=== PATIENT | female | born 1950 | race Two or more races ===

== ENCOUNTER 2016-09-15 20:18 | Inpatient (IN) | payer MEDICARE, OTHER ==
[~2016-09-15] VITALS: Ht 157.5 cm; Wt 57.2 kg
[~2016-09-15 20:18] MED LIST: ACETAMINOPHEN 1,000 MG/100 ML IV ONE; BACITRACIN 50,000 UNITS INJ IRRIG ONE; DEXAMETHASONE 4 MG/ML VIAL IV ONE; FENTANYL 100 MCG/2 ML AMP IV ONE; LIDOCAINE 2% SYR 5 ML IV ONE; ONDANSETRON 4 MG VIAL IV PUSH ONE; PROPOFOL 20 ML PER ML IV ONE; ROCURONIUM 50 MG VIAL IV ONE; SUGAMMADEX 200 MG/2 ML VIAL IV ONE
[2016-09-15] MEDS ORDERED: ONDANSETRON 4 MG VIAL ONE ×2 (21:12→23:58)
[2016-09-15] MEDS ORDERED: MORPHINE 4 MG/ML SYR ONE (21:13)
[2016-09-15] MEDS ORDERED: ACETAMINOPHEN 325 MG TAB PO PRN (21:45)
[2016-09-15] MEDS ORDERED: ALU/MAG/SIM 30 ML UDC PO PRN (21:45)
[2016-09-15] MEDS ORDERED: MAG HYDROX 30 ML UDC PO PRN (21:45)
[2016-09-15] MEDS ORDERED: SALINE FLUSH 10 ML FLUSH PRN (21:45)
[2016-09-15] MEDS ORDERED: BISACODYL EC 5 MG TAB PO PRN (21:45)
[2016-09-15] MEDS ORDERED: DILAUDID 1 MG/ML AMP IV PRN (21:45)
[2016-09-15] MEDS ORDERED: BISACODYL 10 MG SUPP RECTAL PRN (21:45)
[2016-09-15] MEDS ORDERED: SODIUM CHLORIDE 0.9% 1,000 ML IV SCH (21:45)
[2016-09-15 23:13] VITALS: BP_SYST 132; TEMP 97.5; Ht 157.5 cm; Wt 57.2 kg
[2016-09-15 23:14] VITALS: RESP 20
[2016-09-15] MEDS ORDERED: ONDANSETRON 4 MG VIAL IV PUSH PRN (23:50)
[2016-09-16] VITALS (17 sets, daily range): BP systolic 89–128; RESP 14–20; TEMP 97.3–99.4
[2016-09-16] MEDS: MORPHINE 2 MG/ML SYR IV PRN ×2 (00:39→06:47)
[2016-09-16] MEDS ORDERED: SODIUM CHLORIDE 0.9% FLUSH BAG 500 ML IV SCH (06:00)
[2016-09-16] MEDS ORDERED: CEFAZOLIN 2,000 MG in SODIUM CHLORIDE 0.9% 100 ML IV ONE (07:10)
[2016-09-16] MEDS ORDERED: FAMOTIDINE 20 MG INJ IV SCH ×2 (08:00→20:00)
[2016-09-16] MEDS ORDERED: SALINE FLUSH 10 ML FLUSH SCH (08:00)
[2016-09-16] MEDS ORDERED: FAMOTIDINE 20 MG INJ IV ONE (09:15)
[2016-09-16] MEDS ORDERED: MIDAZOLAM 2 MG/2 ML INJ IV ONE (09:15)
[2016-09-16] MEDS ORDERED: LACT RINGERS 1,000 ML IV SCH (09:15)
[2016-09-16] MEDS ORDERED: METOCLOPRAMIDE 10 MG/2 ML VIAL IV PUSH ONE (09:15)
[2016-09-16] MEDS ORDERED: DILAUDID 1 MG/ML AMP IV PRN ×2 (10:00→10:45)
[2016-09-16] MEDS ORDERED: ONDANSETRON 4 MG VIAL IV PRN ×2 (10:00→10:45)
[2016-09-16] MEDS ORDERED: MORPHINE 2 MG/ML SYR IV PRN ×3 (10:00→10:45)
[2016-09-16] MEDS ORDERED: MORPHINE 4 MG/ML SYR IV PRN ×3 (10:00→10:45)
[2016-09-16] MEDS ORDERED: OXYCODONE 5 MG TAB PO PRN (10:00)
[2016-09-16] MEDS ORDERED: SALINE FLUSH 10 ML FLUSH PRN (10:25)
[2016-09-16] MEDS ORDERED: ONDANSETRON 4 MG TAB PO PRN (10:25)
[2016-09-16] MEDS ORDERED: ZOLPIDEM 5 MG TAB PO PRN (10:25)
[2016-09-16] MEDS ORDERED: MAG HYDROX 30 ML UDC PO PRN (10:25)
[2016-09-16] MEDS: CEFAZOLIN 2,000 MG in SODIUM CHLORIDE 0.9% 100 ML IV SCH ×2 (14:15→21:25)
[2016-09-16] MEDS: D5-1/2-NS W/KCL 20MEQ/L 1,000 ML IV SCH (14:20)
[2016-09-16] MEDS: ONDANSETRON 4 MG VIAL IV PRN ×2 (15:05→16:52)
[2016-09-16] MEDS ORDERED: SODIUM CHLORIDE 0.9% 500 ML IV ONE (15:35)
[2016-09-16] MEDS ORDERED: MIDAZOLAM 2 MG/2 ML INJ ONE (19:49)
[2016-09-16] MEDS: SALINE FLUSH 10 ML FLUSH SCH (20:00)
[2016-09-16] MEDS: OXYCODONE 5 MG TAB PO PRN (20:45)
[2016-09-16] MEDS ORDERED: DOCUSATE SOD 100 MG CAP PO SCH (21:00)
[2016-09-16] MEDS: PRAVASTATIN 20 MG TAB PO SCH (21:24)
[2016-09-16] MEDS: PANTOPRAZOLE 20 MG TAB PO SCH (21:24)
[2016-09-16] MEDS: SENNA 8.6 MG TAB PO SCH (21:24)
[2016-09-16] MEDS: CALCIUM CARB/VIT D3 600 MG TAB PO SCH (21:24)
[2016-09-16] MEDS: DOCUSATE SOD 100 MG CAP PO SCH (21:24)
[2016-09-16] MEDS: SERTRALINE 50 MG TAB PO SCH (21:25)
[2016-09-17] VITALS (8 sets, daily range): BP systolic 72–111; RESP 16–20; TEMP 97.4–98.3
[2016-09-17] MEDS: CEFAZOLIN 2,000 MG in SODIUM CHLORIDE 0.9% 100 ML IV SCH ×2 (03:08→09:50)
[2016-09-17] MEDS: D5-1/2-NS W/KCL 20MEQ/L 1,000 ML IV SCH (03:08)
[2016-09-17] MEDS: ONDANSETRON 4 MG VIAL IV PRN (03:49)
[2016-09-17] MEDS: SODIUM CHLORIDE 0.9% FLUSH BAG 500 ML IV SCH (06:00)
[2016-09-17] MEDS: ENOXAPARIN 30 MG/0.3 ML SYR SUBQ SCH (06:28)
[2016-09-17] MEDS ORDERED: LACT RINGERS 1,000 ML IV SCH (08:30)
[2016-09-17] MEDS ORDERED: SODIUM CHLORIDE 0.9% 500 ML IV ONE (08:30)
[2016-09-17] MEDS: SALINE FLUSH 10 ML FLUSH SCH ×2 (08:44→20:00)
[2016-09-17] MEDS ORDERED: MAG HYDROX 30 ML UDC PO SCH (09:00)
[2016-09-17] MEDS: SENNA 8.6 MG TAB PO SCH ×2 (09:00→21:00)
[2016-09-17] MEDS: DOCUSATE SOD 100 MG CAP PO SCH ×2 (09:00→21:00)
[2016-09-17] MEDS: PANTOPRAZOLE 20 MG TAB PO SCH ×2 (09:00→21:00)
[2016-09-17] MEDS: MULTIVITS/MINERALS (THERAGRAN M) TAB PO SCH (09:00)
[2016-09-17] MEDS: CALCIUM CARB/VIT D3 600 MG TAB PO SCH ×2 (09:00→21:00)
[2016-09-17] MEDS: POLYETHYLENE GLYCOL 17 GM PACKET PO SCH (09:00)
[2016-09-17] MEDS ORDERED: BISACODYL 10 MG SUPP RECTAL PRN (11:40)
[2016-09-17] MEDS ORDERED: FLEET ENEMA 132 ML BTL RECTAL PRN (11:40)
[2016-09-17] MEDS: ACETAMINOPHEN 500 MG TAB PO SCH ×2 (13:55→16:13)
[2016-09-17] MEDS: D5-NS W/KCL 20MEQ/L 1,000 ML IV SCH (16:16)
[2016-09-17] MEDS: MAG HYDROX 30 ML UDC PO SCH (20:00)
[2016-09-17] MEDS: SERTRALINE 50 MG TAB PO SCH (21:00)
[2016-09-17] MEDS: PRAVASTATIN 20 MG TAB PO SCH (21:00)
[2016-09-17] MEDS: OXYCODONE 5 MG TAB PO PRN (23:58)
[2016-09-18] VITALS (8 sets, daily range): BP systolic 99–132; RESP 8–20; TEMP 97.7–100.1
[2016-09-18] MEDS: D5-NS W/KCL 20MEQ/L 1,000 ML IV SCH (02:22)
[2016-09-18] MEDS: SODIUM CHLORIDE 0.9% FLUSH BAG 500 ML IV SCH ×2 (05:27→22:51)
[2016-09-18] MEDS: ENOXAPARIN 30 MG/0.3 ML SYR SUBQ SCH (06:19)
[2016-09-18] MEDS: MAG HYDROX 30 ML UDC PO SCH ×2 (08:00→20:00)
[2016-09-18] MEDS: MULTIVITS/MINERALS (THERAGRAN M) TAB PO SCH (08:51)
[2016-09-18] MEDS: SALINE FLUSH 10 ML FLUSH SCH ×2 (08:51→20:20)
[2016-09-18] MEDS: DOCUSATE SOD 100 MG CAP PO SCH ×2 (08:51→20:19)
[2016-09-18] MEDS: PANTOPRAZOLE 20 MG TAB PO SCH ×2 (08:51→20:20)
[2016-09-18] MEDS: CALCIUM CARB/VIT D3 600 MG TAB PO SCH ×2 (08:51→20:19)
[2016-09-18] MEDS: ACETAMINOPHEN 500 MG TAB PO SCH ×4 (08:52→23:28)
[2016-09-18] MEDS: SENNA 8.6 MG TAB PO SCH ×2 (08:53→20:20)
[2016-09-18] MEDS: POLYETHYLENE GLYCOL 17 GM PACKET PO SCH (08:53)
[2016-09-18] MEDS: PRAVASTATIN 20 MG TAB PO SCH (20:19)
[2016-09-18] MEDS: SERTRALINE 50 MG TAB PO SCH (20:22)
[2016-09-18] MEDS: OXYCODONE 5 MG TAB PO PRN (23:28)
[2016-09-19 03:25] VITALS: BP_SYST 103; TEMP 98.9
[2016-09-19 03:26] VITALS: RESP 8
[2016-09-19] MEDS: ENOXAPARIN 30 MG/0.3 ML SYR SUBQ SCH (05:53)
[2016-09-19] MEDS: ACETAMINOPHEN 500 MG TAB PO SCH ×2 (06:47→15:17)
[2016-09-19 06:50] VITALS: BP_SYST 100
[2016-09-19 07:14] VITALS: BP_SYST 104; RESP 16; TEMP 98.1
[2016-09-19] MEDS: SENNA 8.6 MG TAB PO SCH (09:00)
[2016-09-19] MEDS: POLYETHYLENE GLYCOL 17 GM PACKET PO SCH (09:00)
[2016-09-19] MEDS: MAG HYDROX 30 ML UDC PO SCH (09:04)
[2016-09-19] MEDS: CALCIUM CARB/VIT D3 600 MG TAB PO SCH (09:04)
[2016-09-19] MEDS: SALINE FLUSH 10 ML FLUSH SCH (09:04)
[2016-09-19] MEDS: DOCUSATE SOD 100 MG CAP PO SCH (09:04)
[2016-09-19] MEDS: PANTOPRAZOLE 20 MG TAB PO SCH (09:05)
[2016-09-19] MEDS: MULTIVITS/MINERALS (THERAGRAN M) TAB PO SCH (09:05)
[2016-09-19] MEDS: OXYCODONE 5 MG TAB PO PRN (09:06)
[2016-09-19 11:18] VITALS: BP_SYST 109; RESP 14; TEMP 98.3
[2016-09-19] MEDS ORDERED: MISSING DOSE XX ONE (14:30)
[2016-09-19 15:39] VITALS: BP_SYST 102; RESP 16; TEMP 98.8
== END 2016-09-19 17:55 | DRG 481 ==
LOC: ENRESERVTM → ENRESERVDT → ER 20:18 → EMR 21:42 → ENPENDDIS 21:42 → 2NO 23:16
PROVIDERS: ADMIT Internal Medicine; ATTEND Internal Medicine
PROC: 0QS904Z Reposition Left Femoral Shaft with Internal Fixation Device, Open Approach (ICD-10-PCS; principal; 2016-09-16 09:21)
DX: S72.322A Displaced transverse fracture of shaft of left femur, initial encounter for closed fracture (principal); D62 Acute posthemorrhagic anemia; W17.89XA Other fall from one level to another, initial encounter; Y93.89 Activity, other specified; Y92.821 Forest as the place of occurrence of the external cause; K21.9 Gastro-esophageal reflux disease without esophagitis; F41.9 Anxiety disorder, unspecified; I95.81 Postprocedural hypotension; M81.0 Age-related osteoporosis without current pathological fracture; K44.9 Diaphragmatic hernia without obstruction or gangrene; Z79.82 Long term (current) use of aspirin; Z87.11 Personal history of peptic ulcer disease
CPT/HCPCS: 36415; 71010; 76000; 80048; 80053; 82553; 84484; 85014; 85018; 85025; 85610; 85730; 93005; 94762; 94799; 96374; 96375; 99223; 99232; 99239